=== PATIENT | female | born 1950 | race Caucasian/White ===

== ENCOUNTER 2022-05-29 05:30 | Outpatient (CLI) | payer MEDICARE ==
[~2022-05-29] VITALS: Ht 167.7 cm; Wt 59.1 kg
[2022-05-29] MEDS ORDERED: CLON0.252 PO (16:02)
[2022-06-03] MEDS ORDERED: IBUP-2185 PO (14:24)
[2022-06-03] MEDS ORDERED: OLN5T PO (14:24)
[2022-06-03] MEDS ORDERED: ONDA-106 PO (14:24)
[2022-06-03] MEDS ORDERED: MV-M1TAB20 PO (14:24)
[2022-06-03] MEDS ORDERED: ASPI-999 PO (14:24)
[2022-06-03] MEDS ORDERED: CITA20TA12 PO (14:24)
[2022-06-03] MEDS ORDERED: THIA100T68 PO (14:24)
[2022-06-03] MEDS ORDERED: MELA3CAP2 PO (14:24)
== END 2022-06-03 14:28 | disposition home or self-care (01) ==
LOC: PREOP 05:30
PROVIDERS: ATTEND Orthopaedic Surgery
DX: Z01.818 Encounter for other preprocedural examination (principal)

== ENCOUNTER 2022-06-04 09:44 | Day surgery (SDC) | payer MEDICARE ==
--- NOTE | 2022-05-29 08:25 | HISTORY AND PHYSICAL ---
DATE OF SERVICE: This will be for outpatient surgery on 06/04/2022 for left wrist hardware removal. HISTORY OF PRESENT ILLNESS: The patient is a 71-year-old right hand dominant female who underwent internal fixation for left distal radius fracture at an outside facility on or about 03/30/2022. No medical records were available. When she presented to the office, she still had her stitches in. She had been placed in the cast. The radiographs reveal a wrist spanning dorsal plate. It was recommended the patient undergo surgical removal because this is joint spanning. REVIEW OF SYSTEMS: No chest pain, no shortness of breath, no dysuria. PAST MEDICAL HISTORY: Bipolar, tremor, weakness, Alzheimer's, AFib, vitamin D deficiency, anxiety disorder, major depressive disorder, pain, nausea, dementia, hyperlipidemia. PAST SURGICAL HISTORY: Left wrist. SOCIAL HISTORY: No alcohol or tobacco use. FAMILY HISTORY: Noncontributory. PRIMARY CARE PROVIDER: Dr. Panda. ALLERGIES: PENICILLIN AND TYLENOL. PHYSICAL EXAMINATION: GENERAL: The patient is well-developed, well-nourished, in no acute distress. HEENT: Normocephalic, atraumatic. Pupils are equal, round and reactive to light. Oropharynx is clear. NECK: Supple, no lymphadenopathy. LUNGS: Clear to auscultation bilaterally. HEART: Regular rate and rhythm. ABDOMEN: Soft, nontender, nondistended. EXTREMITIES: The left wrist demonstrates well-healed incisions. She has intact MCP extension, finger abduction, thumb IP flexion and extension. Radiographs reveal markedly comminuted, shortened left distal radius fracture with well-placed hardware. IMPRESSION: Retained hardware, left wrist. PLAN: Hardware removal, left wrist. The risks, benefits, options, ramifications and recovery were discussed with the patient and her son. They understand and wished to proceed. Job ID: [id number] DocumentID: [id number] Dictated Date: 05/19/2022 14:02:46 Contract Technical Writer Date: 05/19/2022 14:44:45 Dictated By: GILMER AIKEN MD
[2022-06-04] VITALS (12 sets, daily range): BP systolic 105–154; BP diastolic 66–91
[~2022-06-04] VITALS: Ht 170.2 cm; Wt 59.1 kg
[~2022-06-04 09:44] MED LIST: ASPI-999 PO; CITA20TA12 PO; CLON0.252 PO; HYDROcodone /IBUPROFEN (VICOPROFEN) 7.5 MG/ 200 MG TAB PO PRN; IBUP-2185 PO; MELA3CAP2 PO; MV-M1TAB20 PO; OLN5T PO; ONDA-106 PO; THIA100T68 PO
--- NOTE | 2022-06-04 10:15 | Progress Note-Pre Operative ---
Pre-Operative Progress Note Date of Available H&P: Jun 04, 2022 Date H&P Reviewed: Jun 04, 2022 Time H&P Reviewed: 07:11 Changes from last HP none Pre-Operative Diagnosis: retained left wrist hardware GILMER AIKEN MD Jun 04, 2022 10:15
--- NOTE | 2022-06-04 10:16 | Progress Note-Post Operative ---
Post-Operative Progess Note Surgeon (s)/Service Director (s) Surgeon GILMER AIKEN MD Service Director: Sebastián Blake Pre-Operative Diagnosis retained left wrist hardware Post-Operative Diagnosis retained left wrist hardware Procedure & Operative Findings Date of Procedure 06/04/22 Procedure Performed/Findings hardware removal left wrist Anesthesia Type GETA Estimated Blood Loss Estimated blood loss (mL): minimal Specimens/Packing Specimens Removed plate and screws Packing: none GILMER AIKEN MD Jun 04, 2022 10:16
[2022-06-04] MEDS ORDERED: LACTATED RINGERS 1,000 ML IV PRN (10:30)
[2022-06-04] MEDS ORDERED: ceFAZolin 2 GM IV Premixed 50 ML IV ONE (10:30)
[2022-06-04] MEDS ORDERED: fentaNYL INJ 100 MCG/2 ML AMP ONE ×2 (10:37→12:59)
[2022-06-04] MEDS ORDERED: LIDOCAINE PF 2% 5 ML (XYLOCAINE) VIAL ONE (10:37)
[2022-06-04] MEDS ORDERED: proPOfol 200 MG/20 ML (DIPRIVAN) VIAL IV ONE (10:37)
[2022-06-04] MEDS ORDERED: SEVOFLURANE (ULTANE) 15 ML INHAL SOLN ONE (10:37)
[2022-06-04] MEDS ORDERED: MIDAZOLAM 2 MG/2 ML (VERSED) VIAL ONE (10:38)
[2022-06-04] MEDS ORDERED: BUPIVACAINE 0.5% 30 ML (SENSORCAINE) VIAL ONE (11:07)
[2022-06-04] MEDS ORDERED: ESMOLOL 100 MG/10 ML (BREVIBLOC) VIAL ONE (12:18)
--- NOTE | 2022-06-04 12:39 | Anesthesia-General Post-Op ---
General Patient Condition Mental Status/LOC: Same as Preop Cardiovascular: Satisfactory Nausea/Vomiting: Absent Respiratory: Satisfactory Pain: Controlled Complications: Absent Post Op Complications Complications None Follow Up Care/Instructions Patient Instructions None needed. Anesthesia/Patient Condition Patient Condition Patient is doing well, no complaints, stable vital signs, no apparent adverse anesthesia problems. No complications reported per nursing. OVI BARLOW CRNA Jun 04, 2022 12:39
[2022-06-04] MEDS ORDERED: ONDANSETRON 4 MG/2 ML (SDV) Z0FRAN IVP PRN (12:45)
[2022-06-04] MEDS ORDERED: fentaNYL INJ 100 MCG/2 ML AMP IVP ONE (12:45)
--- NOTE | 2022-06-04 19:10 | OPERATIVE REPORT ---
DATE OF SERVICE: 06/04/2022 PREOPERATIVE DIAGNOSIS: Symptomatic retained left wrist hardware. POSTOPERATIVE DIAGNOSIS: Symptomatic retained left wrist hardware. PROCEDURE: Hardware removal, left wrist. SURGEON: Darshan Aiken MD SALESPERSON HOUSEHOLD APPLIANCES: Sebastián Blake, who assisted throughout the procedure and closed the incisions. ANESTHESIA: General endotracheal by Susana Medrano CRNA. TOURNIQUET TIME: A 20 minutes at 250 mmHg. ESTIMATED BLOOD LOSS: Minimal. DRAINS: None. COMPLICATIONS: None. POSTOPERATIVE PLAN: Splint wear for activities for two weeks. The patient was transferred to the recovery room awake and in stable condition. STATEMENT OF MEDICAL NECESSITY: The patient is a 71-year-old right hand dominant female who underwent a wrist spanning plate and screw fixation for distal radius fracture in [place]. She was moved to a half-way locally and followed up with us. The fracture has gone on to union and because this was a spanning implant, removal was required in order to progress her activities. DESCRIPTION OF PROCEDURE: After risks and benefits of procedure were discussed and questions were answered, informed consent was signed and placed on chart. The operative site was confirmed in the preoperative holding area initialed by the surgeon. The patient was then transferred to the operating room and after adequate levels of general endotracheal anesthetic were obtained, a timeout was called, confirming the operative site. Left upper extremity was prepped and draped in the usual sterile fashion with arm elevated, the tourniquet was inflated to 250 mmHg. The previous incisions were utilized over the index metacarpal and distal radius. The underlying soft tissues were carefully dissected. The plate was exposed, and screws were removed without difficulty. The plate was then removed without difficulty. The wrist was taken through range of motion. Wounds were copiously irrigated and closed with 4-0 nylon in horizontal mattress interrupted fashion. Incisions were infiltrated with plain Marcaine. A soft dressing and splint were applied, and the patient was transferred to the recovery room awake and in stable condition. Job ID: [id number] DocumentID: [id number] Dictated Date: 06/04/2022 12:40:50 Casting Trucker Date: 06/04/2022 19:09:19 Dictated By: DARSHAN AIKEN MD
== END 2022-06-04 14:50 | disposition home or self-care (01) ==
LOC: SDC 09:44
PROVIDERS: ATTEND Orthopaedic Surgery
DX: Z47.2 Encounter for removal of internal fixation device (principal)
CPT/HCPCS: 87081

== ENCOUNTER 2022-07-06 08:33 | Emergency (ER) | payer MEDICARE, OTHER ==
[~2022-07-06] VITALS: Ht 170 cm; Wt 56.0 kg
[~2022-07-06 08:33] MED LIST changes: -HYDROcodone /IBUPROFEN (VICOPROFEN) 7.5 MG/ 200 MG TAB PO PRN
--- NOTE | 2022-07-06 08:56 | ED General ---
General Chief Complaint: Trauma-Non Activation Stated Complaint: FALL Nursing Triage Note: ARRIVED VIA EMS FROM [facility] AFTER FALLING. COMPLAINS OF TAILBONE, RIGHT HIP, THIGH, AND KNEE PAIN. Source of Information: Patient, [facility] Records Exam Limitations: Other (Pt has dementia so hx is limited) (CHRISTIAN DOVE A MED STUDENT) History of Present Illness Date Seen by Provider: Jul 06, 2022 Time Seen by Provider: 08:49 Initial Comments Angelique Wallace is a 71 yo female who was [facility] in [facility]. Pt has hx of alzheimers, anxiety, MDD, weakness/debility and repeated falls. Pt's history is obtained from [facility] records as patient is only alert and oriented to self and place. EMS reported caretakers stated the pt fell out of bed this morning. Pt reports she thinks she fell on her right hip or buttock. She denies hitting her head or losing consciousness. Upon entering room, pt is tearful and states she is "scared" and she is crying because this is "silly". Pt states her right hip hurts upon palpation, but at rest she reports she is in no pain. She declines pain medication. According to retirement notes she walks with FWW and gait belt with assistance. Unable to obtain ROS as pt has hx of dementia and is a poor historian. She does deny any other symptoms such as numbness, weakness, urinary frequency or pain, N/V/D. Timing/Duration: 1-3 Hours Associated Systoms: Denies Symptoms (CHRISTIAN DOVE A MED STUDENT) Allergies and Home Medications Allergies Coded Allergies: Penicillins (Verified Allergy, Unknown, 06/03/22) acetaminophen (Verified Allergy, Unknown, 06/03/22) Patient Home Medication List Home Medication List Reviewed: Yes (JESICA LEE MD) Aspirin (Aspirin) 81 Mg Tab.chew, 81 MG PO DAILY, (Reported) Entered as Reported by: FELIBERTO VIGIL on 06/03/22 142 Citalopram Hydrobromide (Celexa) 20 Mg Tablet, 20 MG PO HS, (Reported) Entered as Reported by: FELIBERTO VIGIL on 06/03/22 1424 Clonazepam (Clonazepam) 0.25 Mg Tab.rapdis, 0.5 MG PO HS, (Reported) Entered as Reported by: FELIBERTO VIGIL on 05/29/22 1602 Melatonin (Melatonin) 3 Mg Capsule, 3 MG PO HS, (Reported) Entered as Reported by: FELIBERTO VIGIL on 06/03/22 1424 Mv-Mn/Iron/FA/Herbal Cmplx#190 (Vitamin D3 Complete Caplet) 18 Mg Iron-800 Mcg- 150 Mg Tablet, 1 EACH PO DAILY, (Reported) Entered as Reported by: FELIBERTO VIGIL on 06/03/22 1424 Olanzapine (Olanzapine) 5 Mg Tablet, 5 MG PO HS, (Reported) Entered as Reported by: FELIBERTO VIGIL on 06/03/22 1424 Ondansetron HCl (Ondansetron HCl) 8 Mg Tablet, 8 MG PO Q8H, (Reported) Entered as Reported by: FELIBERTO VIGIL on 06/03/22 1424 Thiamine Mononitrate (Vitamin B-1) 100 Mg Tablet, 100 MG PO DAILY, (Reported) Entered as Reported by: FELIBERTO VIGIL on 06/03/22 1424 Review of Systems Review of Systems Unable to obtain d/t dementia (CHRISTIAN DOVE STUDENT) Past Qeifffa-Tanrlu-Ufrjus Hx Patient Social History Smoking Status: Former Smoker Substance use?: No Alcohol Use?: No (CHRISTIAN DOVE) Immunizations Up To Date First/Initial COVID19 Vaccinat: YES (CHRISTIAN DOVE STUDENT) Seasonal Allergies Seasonal Allergies: No (CHRISTIAN DOVE) Past Medical History Surgeries: Yes (LEFT WRIST HARDWARE PLACEMENT, UNKNOWN IF OTHER SX) Respiratory: No Currently Using CPAP: No Currently Using BIPAP: No Cardiac: Yes Atrial Fibrillation, High Cholesterol Neurological: Yes (ALZHEIMERS, TREMOR, COGNATIVE COMMNICATION DEFICIT) Dementia Genitourinary: No Gastrointestinal: Yes (ARTIFICAL GI TRACCT, NAUSEA) Musculoskeletal: Yes (WEAKNESS, DIFFICULTY WALKING) Fractures Endocrine: No HEENT: No (UNKNOWN) Cancer: No (UNKNOWN) Psychosocial: Yes (DEPRESSIVE DISORDER,) Anxiety Integumentary: No (CHRISTIAN DOVE STUDENT) Physical Exam Vital Signs Vital Signs - First Documented 07/06/22 08:33 Temp 36.6 Pulse 79 Resp 16 B/P (MAP) 112/69 (83) Pulse Ox 95 O2 Delivery Room Air (JESICA LEE MD) Vital Signs Capillary Refill : Less Than 3 Seconds (CHRISTIAN DOVE MED STUDENT) Height, Weight, BMI Height: '" Weight: lbs. oz. kg; 19.00 BMI Method: (CHRISTIAN DOVE STUDENT) General Appearance: Anxious (tearful), Thin Eyes: Bilateral Eye Normal Inspection, Bilateral Eye PERRL, Bilateral Eye EOMI HEENT: PERRL/EOMI Neck: Full Range of Motion, Non Tender Respiratory: Lungs Clear, Normal Breath Sounds, No Accessory Muscle Use, No Respiratory Distress Cardiovascular: Regular Rate, Rhythm, Normal Peripheral Pulses Gastrointestinal: Non Tender, Soft (JESICA LEE MD) Progress/Results/Core Measures Suspected Sepsis SIRS Temperature: Pulse: 79 Respiratory Rate: 16 Blood Pressure 112 /69 Mean: 83 (CHRISTIAN DOVE STUDENT) Results/Orders My Orders Orders - JESICA LEE MD Pelvis/Enrico Hips 2 Views (07/06/22 08:48) Hydrocodone/Apap 7.5/325 Tab (Lortab 7. (07/06/22 09:00) (JESICA LEE MD) Medications Given in ED Current Medications Medications Dose Ordered Sig/Clary Route Start Time Stop Time Status Last Admin Dose Admin Acetaminophen/ Hydrocodone Bitart 1 ea ONCE ONCE PO 07/06/22 09:00 07/06/22 09:02 DC 07/06/22 09:04 1 EA (JESICA LEE MD) Vital Signs/I&O 07/06/22 08:33 Temp 36.6 Pulse 79 Resp 16 B/P (MAP) 112/69 (83) Pulse Ox 95 O2 Delivery Room Air (JESICA LEE MD) Vital Signs/I&O Capillary Refill : Less Than 3 Seconds (CHRISTIAN DOVE MED STUDENT) 2 Blood Pressure Mean: 83 Diagnostic Imaging Diagonstic Imaging: Xray Comments [facility] [place] [place] NAME: ANGELIQUE WALLACE MED REC#: [id number] PT STATUS: REG ER : 1950 PHYSICIAN: JESICA LEE MD ADMIT DATE: 07/06/22/ER Draft Date of Exam:07/06/22 PELVIS/ENRICO HIPS 2 VIEWS HISTORY: Fall, bilateral hip pain. TECHNIQUE: Frontal view of the pelvis. Frontal and lateral views of the bilateral hips. COMPARISON: None. FINDINGS: No acute fracture or dislocation is seen in the pelvis or bilateral hips. Alignment appears normal. Joint spaces appear preserved. There is marked stool in the rectum. IMPRESSION: 1. No acute osseous abnormality is seen in the pelvis or bilateral hips. 2. Marked stool in the rectum. Dictated on workstation # [id number] Dict: 07/06/22 1004 Trans: 07/06/22 1012 [id number] Interpreted by: EMILIE SIEGEL MD Electronically signed by: (JESICA LEE MD) Departure Impression Primary Impression: Fall Qualified Codes: W19.XXXA - Unspecified fall, initial encounter Additional Impression: Pelvic contusion Qualified Codes: S30.0XXA - Contusion of lower back and pelvis, initial encounter Disposition: 01 HOME, SELF-CARE Condition: Stable Departure-Patient Inst. Decision time for Depature: 10:25 (JESICA LEE MD) Referrals: VICKY ONEILL MD (PCP/Family) Primary Care Physician Patient Instructions: Minor Contusion ED Add. Discharge Instructions: No hip or pelvic fracture was discovered today. Continue routine medications as prescribed. Monitor for increasing weakness. Fall prevention is important - she needs assist with ambulation. Return to the emergency department for any new, concerning or emergent complain ts Copy Copies To 1: VICKY ONEILL MD, [place] A MED STUDENT Jul 06, 2022 08:56 JESICA LEE MD Jul 06, 2022 10:09
[2022-07-06] MEDS ORDERED: HYDROcodone/APAP 7.5 MG/325 MG (LORTAB, LORCET PLUS) TABLET PO ONE (09:00)
--- NOTE | 2022-07-06 10:13 | Diagnostic Imaging Report ---
HISTORY: Fall, bilateral hip pain. TECHNIQUE: Frontal view of the pelvis. Frontal and lateral views of the bilateral hips. COMPARISON: None. FINDINGS: No acute fracture or dislocation is seen in the pelvis or bilateral hips. Alignment appears normal. Joint spaces appear preserved. There is marked stool in the rectum. IMPRESSION: 1. No acute osseous abnormality is seen in the pelvis or bilateral hips. 2. Marked stool in the rectum. Dictated by: Dictated on workstation # [id number]
[2022-07-06] MEDS ORDERED: FLUORESCEIN (FLUOR-I-STRIPS) 1 MG STRP OU ONE (10:15)
[2022-07-06 10:59] VITALS: BP 116/74
== END 2022-07-06 10:59 | disposition home or self-care (01) ==
LOC: EDUNIT# 08:33 → ER 08:34
DX: S30.0XXA Contusion of lower back and pelvis, initial encounter (principal); Z87.891 Personal history of nicotine dependence; Z28.310 Unvaccinated for COVID-19; W18.30XA Fall on same level, unspecified, initial encounter
CPT/HCPCS: 73521

== ENCOUNTER 2022-07-20 15:18 | Emergency (ER) | payer MEDICARE, OTHER ==
[~2022-07-20] VITALS: Ht 170 cm; Wt 61.0 kg
[2022-07-20] MEDS ORDERED: TETANUS,DIPTH,PERTUSS P/F (BOOSTRIX) 0.5 ML VIAL IM ONE (15:30)
[2022-07-20] MEDS ORDERED: L.E.T. SOLUTION 3 ML SYR TOP ONE (15:30)
--- NOTE | 2022-07-20 16:01 | ED Fall/Injury ---
General Chief Complaint: Laceration Stated Complaint: FALL Nursing Triage Note: ARRIVED VIA EMS FROM FACILITY WITH COMPLAINTS OF FALLING AND CAUSING A LACERATION ABOVE HER RIGHT EYE. DENIES LOC. STATES SHE JUST TRIPPED. EMS REPORTS SHE WAS NOT USING HER WALKER. History of Present Illness Date Seen by Provider: Jul 20, 2022 Time Seen by Provider: 15:20 Initial Comments Patient is a 72 yo F who presents to the ED via EMS after a mechanical fall at her assisted living facility. She states she was walking in front of the refrigerator when she slipped causing her to fall and strike the right side of her forehead/head on the ground. She denies any LOC. States her only pain is that in her head. EMS state patient typically uses a walker to assist with ambulation but was not using it at the time of the fall. Patient states she noticed blood coming from her forehead and she applied a rag to wound and held pressure. EMS states patient was stable en route. Patient is unsure of the date of her last tetanus booster. Occurred: just prior to arrival Injuries/Pain Location: head, face Context: slipped Loss of Consciousness: no loss of consciousness Allergies and Home Medications Allergies Coded Allergies: Penicillins (Verified Allergy, Unknown, 06/03/22) acetaminophen (Verified Allergy, Unknown, 06/03/22) Patient Home Medication List Home Medication List Reviewed: Yes Aspirin (Aspirin) 81 Mg Tab.chew, 81 MG PO DAILY, (Reported) Entered as Reported by: FELIBERTO VIGIL on 06/03/22 142 Citalopram Hydrobromide (Celexa) 20 Mg Tablet, 20 MG PO HS, (Reported) Entered as Reported by: FELIBERTO VIGIL on 06/03/22 142 Clonazepam (Clonazepam) 0.25 Mg Tab.rapdis, 0.5 MG PO HS, (Reported) Entered as Reported by: FELIBERTO VIGIL on 05/29/22 160 Melatonin (Melatonin) 3 Mg Capsule, 3 MG PO HS, (Reported) Entered as Reported by: FELIBERTO VIGIL on 06/03/22 142 Mv-Mn/Iron/FA/Herbal Cmplx#190 (Vitamin D3 Complete Caplet) 18 Mg Iron-800 Mcg- 150 Mg Tablet, 1 EACH PO DAILY, (Reported) Entered as Reported by: FELIBERTO VIGIL on 06/03/22 1424 Olanzapine (Olanzapine) 5 Mg Tablet, 5 MG PO HS, (Reported) Entered as Reported by: FELIEBRTO VIGIL on 06/03/22 142 Ondansetron HCl (Ondansetron HCl) 8 Mg Tablet, 8 MG PO Q8H, (Reported) Entered as Reported by: FELIBERTO VIGIL on 06/03/221423 Thiamine Mononitrate (Vitamin B-1) 100 Mg Tablet, 100 MG PO DAILY, (Reported) Entered as Reported by: FELIBERTO VIGIL on 06/03/221423 Review of Systems Review of Systems Constitutional: no symptoms reported Eyes: No Symptoms Reported Ears, Nose, Mouth, Throat: no symptoms reported Respiratory: no symptoms reported Cardiovascular: no symptoms reported Gastrointestinal: no symptoms reported Genitourinary: no symptoms reported Skin: other (laceration) Psychiatric/Neurological: Headache Past Iqesvzt-Kkjfhw-Enpkrj Hx Patient Social History Tobacco Use?: Yes Smoking Status: Former Smoker Substance use?: Yes Substance frequency: Rarely Immunizations Up To Date First/Initial COVID19 Vaccinat: YES Seasonal Allergies Seasonal Allergies: No Past Medical History Surgeries: Yes (LEFT WRIST HARDWARE PLACEMENT, UNKNOWN IF OTHER SX) Respiratory: No Currently Using CPAP: No Currently Using BIPAP: No Cardiac: Yes Atrial Fibrillation, High Cholesterol Neurological: Yes (ALZHEIMERS, TREMOR, COGNATIVE COMMNICATION DEFICIT) Dementia Genitourinary: No Gastrointestinal: Yes (ARTIFICAL GI TRACCT, NAUSEA) Musculoskeletal: Yes (WEAKNESS, DIFFICULTY WALKING) Fractures Endocrine: No HEENT: No (UNKNOWN) Cancer: No (UNKNOWN) Psychosocial: Yes (DEPRESSIVE DISORDER,) Anxiety Integumentary: No Physical Exam Vital Signs Vital Signs - First Documented 07/20/22 15:18 Temp 36.4 Pulse 91 Resp 16 B/P (MAP) 124/74 (91) Pulse Ox 97 O2 Delivery Room Air Capillary Refill : Less Than 3 Seconds Height, Weight, BMI Height: '" Weight: lbs. oz. kg; 21.00 BMI Method: General Appearance: WD/WN HEENT: PERRL/EOMI, normal ENT inspection, TMs normal Neck: non-tender, full range of motion, supple, normal inspection Cardiovascular: regular rate, rhythm Respiratory: chest non-tender, lungs clear, normal breath sounds, no respira tory distress, no accessory muscle use Gastrointestinal: normal bowel sounds, non tender, soft Extremities: normal range of motion, non-tender, normal inspection Neurologic/Psychiatric: no motor/sensory deficits, alert, normal mood/affect Skin: normal color, warm/dry Melinda Coma Score Best Eye Response: (4) Open Spontaneously Best Verbal Response: (4) Confused Conversation Best Motor Response: (6) Obeys Commands Melinda Total: 14 Procedures/Interventions Wound Location: Face Wound Length (cm): 1.5 Wound's Depth, Shape: superficial Wound Explored: no foreign body removed Irrigated w/ Saline (ccs): 100 Suture Size: 5-0 Number of Sutures: 5 anesthesia with LET gel; 5 sutures of fast absorbing gut applied to the wound Progress/Results/Core Measures Results/Orders My Orders Orders - DELMY MARTINEZ APRN Ct Head/Cervical Spine Wo (07/20/22 15:26) Let Solution (Let Solution) (07/20/22 15:30) Dipht,Pertuss(Acell),Tet Adult (Boostrix (07/20/22 15:30) Medications Given in ED Current Medications Medications Dose Ordered Sig/Clary Route Start Time Stop Time Status Last Admin Dose Admin Diphtheria/ Tetanus/Acell Pertussis 0.5 ml ONCE ONCE IM 07/20/22 15:30 07/20/22 15:31 DC 07/20/22 16:19 0.5 ML Tetracaine/ Epinephrine/ Lidocaine 3 ml ONCE ONCE TOP 07/20/22 15:30 07/20/22 15:31 DC 07/20/22 15:31 3 ML Vital Signs/I&O 07/20/22 07/20/22 15:18 17:03 Temp 36.4 Pulse 91 81 Resp 16 16 B/P (MAP) 124/74 (91) 128/78 Pulse Ox 97 99 O2 Delivery Room Air Room Air Blood Pressure Mean: 91 Progress Progress Note : Progress Note Patient is nontoxic and well hydrated on exam. No focal neurologic deficits appreciated. Vital signs are reassuring. Pt is alert to person and place. This is her baseline per EMS and family. CT of the head/c-spine was negative. Pt was placed in a c-collar by EMS and this was successfully removed. Laceration was repaired as noted separately. Tetanus was updated. Wound care was discussed. Follow-up with PCP as needed. Return precautions for urgent symptomology discussed. Patient and family verbalized understanding. Departure Impression Primary Impression: Minor head injury without loss of consciousness Qualified Codes: S09.90XA - Unspecified injury of head, initial encounter Additional Impressions: Fall Qualified Codes: W19.XXXA - Unspecified fall, initial encounter Forehead laceration Qualified Codes: S01.81XA - Laceration without foreign body of other part of head, initial encounter Disposition: 01 HOME, SELF-CARE Condition: Improved Departure-Patient Inst. Decision time for Depature: 16:50 Referrals: VICKY ONEILL MD (PCP/Family) Primary Care Physician Patient Instructions: Laceration Repair With Stitches (DC), Minor Head Injury (DC) DELMY MARTINEZ APRN Jul 20, 2022 16:01
--- NOTE | 2022-07-20 16:04 | Diagnostic Imaging Report ---
PROCEDURE: CT head and CT cervical spine without contrast. TECHNIQUE: Multiple contiguous axial images were obtained through the brain and cervical spine without the use of intravenous contrast. Sagittal and coronal reformations through the cervical spine were then performed. Auto Exposure Controls were utilized during the CT exam to meet ALARA standards for radiation dose reduction. INDICATION: Fall. Head pain. Laceration above right eye. COMPARISON: CT head July 06, 2021. FINDINGS: There is age-related global volume loss. There are background microvascular changes present within the white matter. There is no finding of acute intracranial hemorrhage. There is no evidence of an abnormal extra-axial collection. There is no mass effect or shift. There is no hydrocephalus. The basilar cisterns are patent. There is no finding of territorial loss of colon-white differentiation. There is no vasogenic edema. There is no CT finding of a calvarial fracture. The mastoids are clear. The paranasal sinuses are clear. The orbital contents are unremarkable. There is no identified facial fracture. Cervical spine demonstrates reversal of the cervical lordosis. Alignment is normal. There are normal relationships of the craniocervical junction. There are normal relationships of the lateral masses of C1 and C2. The facets are normally aligned. There is no facet joint or disc space widening. Vertebral body heights are maintained. There is no finding of an acute cervical spine fracture. There is no evidence of high-grade canal stenosis. The lung apices demonstrate features of paraseptal emphysema. There is a markedly enlarged left sided thyroid which appears multinodular. There is no acute soft tissue abnormality. IMPRESSION: 1. Age-related volume loss with background microvascular changes within the white matter. There is no CT finding of intracranial hemorrhage or of an acute intracranial abnormality. 2. No identified facial or calvarial fracture. Orbital contents unremarkable. 3. No CT finding of cervical spine fracture or traumatic malalignment. 4. Paraseptal emphysema. 5. Marked enlargement of a multinodular left lobe of the thyroid. Dictated by: Dictated on workstation # [id number]
[2022-07-20 17:03] VITALS: BP 128/78
== END 2022-07-20 17:03 | disposition home or self-care (01) ==
LOC: EDUNIT# 15:18 → ER 15:19
DX: S09.90XA Unspecified injury of head, initial encounter (principal); S01.81XA Laceration without foreign body of other part of head, initial encounter; Z87.891 Personal history of nicotine dependence; Z23 Encounter for immunization; W01.198A Fall on same level from slipping, tripping and stumbling with subsequent striking against other object, initial encounter; Y93.01 Activity, walking, marching and hiking
CPT/HCPCS: 12011; 70450; 72125; 90715

== ENCOUNTER 2022-11-19 14:44 | Emergency (ER) | payer MEDICARE, OTHER ==
--- NOTE | 2022-11-19 15:03 | ED Upper Extremity ---
General Chief Complaint: Trauma-Non Activation Stated Complaint: FALL | RT ARM INJ Source: patient, caregiver Exam Limitations: no limitations History of Present Illness Date Seen by Provider: Nov 19, 2022 Time Seen by Provider: 15:00 Initial Comments Patient is a 72-year-old female who presents to the emergency department for evaluation of right arm pain after a mechanical fall in her kitchen. Patient is accompanied by a caregiver who helps provide history. Patient denies any other pain or injury at this time. She states she remembers the fall and denies any head injury or loss of consciousness. The injury occurred approximately 1 hour prior to arrival. Ice was placed to the injury shortly after it occurred. Patient has had no medications for the symptoms since they began. Allergies and Home Medications Allergies Coded Allergies: Penicillins (Verified Allergy, Unknown, 06/03/22) acetaminophen (Verified Allergy, Unknown, 06/03/22) Patient Home Medication List Home Medication List Reviewed: Yes Aspirin (Aspirin) 81 Mg Tab.chew, 81 MG PO DAILY, (Reported) Entered as Reported by: FELIBERTO VIGIL on 06/03/22 1424 Citalopram Hydrobromide (Celexa) 20 Mg Tablet, 20 MG PO HS, (Reported) Entered as Reported by: FELIBERTO VIGIL on 06/03/22 1424 Clonazepam (Clonazepam) 0.25 Mg Tab.rapdis, 0.5 MG PO HS, (Reported) Entered as Reported by: FELIBERTO VIGIL on 05/29/22 1602 Melatonin (Melatonin) 3 Mg Capsule, 3 MG PO HS, (Reported) Entered as Reported by: FELIBERTO VIGIL on 06/03/22 1424 Mv-Mn/Iron/FA/Herbal Cmplx#190 (Vitamin D3 Complete Caplet) 18 Mg Iron-800 Mcg- 150 Mg Tablet, 1 EACH PO DAILY, (Reported) Entered as Reported by: FELIBERTO VIGIL on 06/03/22 1424 Olanzapine (Olanzapine) 5 Mg Tablet, 5 MG PO HS, (Reported) Entered as Reported by: FELIBERTO VIGIL on 06/03/22 1424 Ondansetron HCl (Ondansetron HCl) 8 Mg Tablet, 8 MG PO Q8H, (Reported) Entered as Reported by: FELIBERTO VIGIL on 06/03/22 1424 Thiamine Mononitrate (Vitamin B-1) 100 Mg Tablet, 100 MG PO DAILY, (Reported) Entered as Reported by: FELIBERTO VIGIL on 06/03/22 [id number] Review of Systems Constitutional: no symptoms reported EENTM: no symptoms reported Respiratory: no symptoms reported Cardiovascular: no symptoms reported Gastrointestinal: no symptoms reported Genitourinary: no symptoms reported Musculoskeletal: see HPI Skin: no symptoms reported Psychiatric/Neurological: No Symptoms Reported Past Ftlhjvu-Zefnmn-Zlhwpd Hx Immunizations Up To Date First/Initial COVID19 Vaccinat: YES Seasonal Allergies Seasonal Allergies: No Past Medical History Surgeries: Yes (LEFT WRIST HARDWARE PLACEMENT, UNKNOWN IF OTHER SX) Respiratory: No Currently Using CPAP: No Currently Using BIPAP: No Cardiac: Yes Atrial Fibrillation, High Cholesterol Neurological: Yes (ALZHEIMERS, TREMOR, COGNATIVE COMMNICATION DEFICIT) Dementia Genitourinary: No Gastrointestinal: Yes (ARTIFICAL GI TRACCT, NAUSEA) Musculoskeletal: Yes (WEAKNESS, DIFFICULTY WALKING) Fractures Endocrine: No HEENT: No (UNKNOWN) Cancer: No (UNKNOWN) Psychosocial: Yes (DEPRESSIVE DISORDER,) Anxiety Integumentary: No Physical Exam Vital Signs Vital Signs - First Documented 11/19/22 14:54 Temp 36.0 Pulse 112 Resp 22 B/P (MAP) 140/77 (98) Pulse Ox 96 O2 Delivery Room Air Capillary Refill : Height, Weight, BMI Height: '" Weight: lbs. oz. kg; 21.00 BMI Method: General Appearance: WD/WN, no apparent distress HEENT: PERRL/EOMI, normal ENT inspection, TMs normal, pharynx normal Neck: non-tender, full range of motion, supple, normal inspection Cardiovascular: regular rate, rhythm Respiratory: chest non-tender, lungs clear, normal breath sounds, no respiratory distress, no accessory muscle use Gastrointestinal: normal bowel sounds, non tender, soft Elbow/Forearm: Right, pain, soft tissue tenderness, swelling Procedures/Interventions Suture Size: 5-0 Progress/Results/Core Measures Results/Orders My Orders Orders - DELMY MARTINEZ APRN Forearm, Right, 2 Views (11/19/22 14:58) Vital Signs/I&O 11/19/22 14:54 Temp 36.0 Pulse 112 Resp 22 B/P (MAP) 140/77 (98) Pulse Ox 96 O2 Delivery Room Air Progress Progress Note : Progress Note Patient is nontoxic and well-hydrated on exam. She was ambulatory to the room without issue. She does have some swelling noted to the radial side of the mid forearm along with ecchymosis. She is able to pronate and supinate the affected extremity without provocation of pain. Neurovascular function is intact distal to the injury. Ulnar and radial pulse are strong and brisk. Placed for x-ray of the right forearm. No obvious osseous abnormality noted on my wet read of the x-ray. Formal radiology report in agreement that there are no acute findings noted. Will discharge home with recommendations for supportive care and follow-up with PCP. Return precautions for urgent symptomology discussed. Patient and caregiver verbalized understanding. Departure Impression Primary Impression: Contusion of right forearm Qualified Codes: S50.11XA - Contusion of right forearm, initial encounter Disposition: 01 HOME, SELF-CARE Condition: Stable Departure-Patient Inst. Decision time for Depature: 15:35 Referrals: BOWEN MORENO DO (PCP/Family) Primary Care Physician Patient Instructions: Contusion (DC) DELMY MARTINEZ APRN Nov 19, 2022 15:03
--- NOTE | 2022-11-19 15:32 | Diagnostic Imaging Report ---
INDICATION: Fall with right forearm pain. AP and lateral views of the right forearm are obtained. No fracture or acute bony abnormality seen. IMPRESSION: Negative right forearm. Dictated by: Dictated on workstation # [id number]
[2022-11-19 15:44] VITALS: BP 128/74
== END 2022-11-19 15:45 | disposition home or self-care (01) ==
LOC: EDUNIT# 14:44 → ER 14:46
DX: S50.11XA Contusion of right forearm, initial encounter (principal); W19.XXXA Unspecified fall, initial encounter; Y92.000 Kitchen of unspecified non-institutional (private) residence as the place of occurrence of the external cause
CPT/HCPCS: 73090

== ENCOUNTER 2023-04-18 07:06 | Emergency (ER) | payer MEDICARE, OTHER ==
[~2023-04-18] VITALS: Ht 168 cm; Wt 61.6 kg
--- NOTE | 2023-04-18 07:15 | ED Fall/Injury ---
General Chief Complaint: Trauma-Non Activation Stated Complaint: FALL Source: patient, EMS Exam Limitations: no limitations History of Present Illness Date Seen by Provider: Apr 18, 2023 Time Seen by Provider: 07:05 Initial Comments 72-year-old female presents to the emergency department today after a fall. She was at her nursing facility and had an unwitnessed fall. She does not believe she lost consciousness. She is not on blood thinning medications. She got up and was able to ambulate without difficulty after the event. She complains of pain only in her left head at the area of the bruise. All other systems reviewed and negative except documented per HPI. Voice recognition software was used to help create this chart Allergies and Home Medications Allergies Coded Allergies: Penicillins (Verified Allergy, Unknown, 06/03/22) acetaminophen (Verified Allergy, Unknown, 06/03/22) Patient Home Medication List Home Medication List Reviewed: Yes Aspirin (Aspirin) 81 Mg Tab.chew, 81 MG PO DAILY, (Reported) Entered as Reported by: FELIBERTO VIGIL on 06/03/22 142 Citalopram Hydrobromide (Celexa) 20 Mg Tablet, 20 MG PO HS, (Reported) Entered as Reported by: FELIBERTO VIGIL on 06/03/22 1424 Clonazepam (Clonazepam) 0.25 Mg Tab.rapdis, 0.5 MG PO HS, (Reported) Entered as Reported by: FELIBERTO VIGIL on 05/29/22 160 Melatonin (Melatonin) 3 Mg Capsule, 3 MG PO HS, (Reported) Entered as Reported by: FELIBERTO VIGIL on 06/03/22 1424 Mv-Mn/Iron/FA/Herbal Cmplx#190 (Vitamin D3 Complete Caplet) 18 Mg Iron-800 Mcg- 150 Mg Tablet, 1 EACH PO DAILY, (Reported) Entered as Reported by: FELIBERTO VIGIL on 06/03/22 1424 Olanzapine (Olanzapine) 5 Mg Tablet, 5 MG PO HS, (Reported) Entered as Reported by: FELIBERTO VIGIL on 06/03/22 1424 Ondansetron HCl (Ondansetron HCl) 8 Mg Tablet, 8 MG PO Q8H, (Reported) Entered as Reported by: FELIBERTO VIGIL on 06/03/22 1424 Thiamine Mononitrate (Vitamin B-1) 100 Mg Tablet, 100 MG PO DAILY, (Reported) Entered as Reported by: FELIBERTO VIGIL on 06/03/22 1424 Review of Systems Review of Systems Constitutional: see HPI Past Prdzgio-Dnmtty-Dbvyxk Hx Patient Social History Tobacco Use?: No Use of E-Cig and/or Vaping dev: No Substance use?: No Alcohol Use?: No Immunizations Up To Date First/Initial COVID19 Vaccinat: YES Second COVID19 Vaccination Yuriy: YES Third COVID19 Vaccination Date: YES Seasonal Allergies Seasonal Allergies: No Past Medical History Surgery/Hospitalization HX: afib Surgeries: Yes (LEFT WRIST HARDWARE PLACEMENT, UNKNOWN IF OTHER SX) Respiratory: No Currently Using CPAP: No Currently Using BIPAP: No Cardiac: Yes Atrial Fibrillation, High Cholesterol Neurological: Yes (ALZHEIMERS, TREMOR, COGNATIVE COMMNICATION DEFICIT) Dementia Genitourinary: No Gastrointestinal: Yes (ARTIFICAL GI TRACCT, NAUSEA) Musculoskeletal: Yes (WEAKNESS, DIFFICULTY WALKING) Fractures Endocrine: No HEENT: No (UNKNOWN) Cancer: No (UNKNOWN) Psychosocial: Yes (DEPRESSIVE DISORDER,) Anxiety Integumentary: No Physical Exam Vital Signs Vital Signs - First Documented 04/18/23 07:10 Temp 36.5 Pulse 67 Resp 18 B/P (MAP) 122/75 (91) O2 Delivery Room Air Capillary Refill : Height, Weight, BMI Height: '" Weight: lbs. oz. kg; 21.00 BMI Method: General Appearance: WD/WN, no apparent distress HEENT: PERRL/EOMI, pharynx normal, other (Cephalhematoma above her left eye) Neck: non-tender, supple Cardiovascular: regular rate, rhythm, no murmur Respiratory: chest non-tender, lungs clear, normal breath sounds, no respiratory distress, no accessory muscle use Gastrointestinal: normal bowel sounds, non tender, soft, no organomegaly Extremities: normal range of motion, non-tender, no pedal edema, no calf tenderness, other (Bruising just beneath the MCP on the dorsum of the left hand beneath the fourth digit. There is no bony tenderness.) Neurologic/Psychiatric: compliance analyst II-XII nml as tested, no motor/sensory deficits, alert, normal mood/affect, oriented x 3 Skin: warm/dry, ecchymosis (Above left eye) Procedures/Interventions Suture Size: 5-0 Progress/Results/Core Measures Results/Orders My Orders Orders - SOFIA CHRIS DO Ct Head Wo (04/18/23 07:12) Vital Signs/I&O 04/18/23 07:10 Temp 36.5 Pulse 67 Resp 18 B/P (MAP) 122/75 (91) O2 Delivery Room Air Departure Communication (Admissions) Patient is hemodynamically stable, alert, oriented. CT scan obtained of her head due to significant trauma and her age. This was negative on my independent review. She has no focal neurologic deficits. She does have some mild bruising to the dorsum of her left hand but no bony tenderness whatsoever. She is discharged home in stable condition with supportive care. Impression Primary Impression: Fall Qualified Codes: W19.XXXA - Unspecified fall, initial encounter Additional Impression: Cephalhematoma Disposition: HOME, SELF-CARE Condition: Stable Departure-Patient Inst. Referrals: BOWEN MORENO DO (PCP/Family) Primary Care Physician Patient Instructions: Preventing Falls ED Add. Discharge Instructions: Your CT scan is normal. You have no obvious serious injuries from your fall. Use ibuprofen and Tylenol for pain. Return to the emergency department for any severe concerns All discharge instructions reviewed with patient and/or family. Voiced understanding. SOFIA CHRIS DO Apr 18, 2023 07:15
--- NOTE | 2023-04-18 07:38 | Diagnostic Imaging Report ---
PROCEDURE: CT head without contrast. TECHNIQUE: Multiple contiguous axial images were obtained through the brain without the use of intravenous contrast. Auto Exposure Controls were utilized during the CT exam to meet ALARA standards for radiation dose reduction. INDICATION: Headache after fall COMPARISON: CT of the head. 2021. FINDINGS: Mild generalized cerebral volume loss. Mild nonspecific periventricular hypoattenuation.. No intra- or extra-axial mass or fluid collection. No acute hemorrhage. The ventricles are normal in size, shape, and morphology. The colon-white matter junction is normal. The subarachnoid cisterns are patent. The visualized paranasal sinuses are normal. The visualized portions of the orbits and globes are normal. The mastoid air cells are clear. Left frontal scalp trauma. The first officer topogram shows no lytic lesion or fracture. Impression: No acute intracranial process. Dictated by: Dictated on workstation # [id number]
[2023-04-18] MEDS ORDERED: IBUPROFEN 600 MG (MOTRIN) TAB PO ONE (07:45)
[2023-04-18 08:10] VITALS: BP 127/70
== END 2023-04-18 08:10 | disposition home or self-care (01) ==
LOC: EDUNIT# 07:06 → ER 07:07
DX: S06.2X0A Diffuse traumatic brain injury without loss of consciousness, initial encounter (principal); S60.042A Contusion of left ring finger without damage to nail, initial encounter; W19.XXXA Unspecified fall, initial encounter
CPT/HCPCS: 70450